=== PATIENT | male | born 1985 | race Caucasian/White ===

== ENCOUNTER 2023-12-05 04:58 | Inpatient (IN) | payer SELFPAY ==
[~2023-12-05] VITALS: Ht 170.2 cm; Wt 72.2 kg
[2023-12-05] MEDS: ACETAMINOPHEN 500 MG TABLET PO ONE (05:20)
[2023-12-05 05:40] LABS: SARS-CoV-2, RNA, NAAT NEGATIVE SARS CoV-2 (NEGATIVE)
[2023-12-05 05:44] LABS: INFLUENZA TYPE A Negative For Type A (NEGATIVE); INFLUENZA TYPE B Negative For Type B (NEGATIVE)
[2023-12-05 06:08] VITALS: TEMP 98.9
[2023-12-05 06:29] LABS: BASOPHILS # (AUTO) 0.02 K/uL (0.00-0.20); BASOPHILS % (AUTO) 0.1 % (0.0-5.0); EOSINOPHILS # (AUTO) 0.04 K/uL (0.00-0.70); EOSINOPHILS % (AUTO) 0.2 % (0.0-8.0); HEMATOCRIT 32.5 % (42-54); IMMATURE GRANULOCYTE ABSOLUTE 0.09 K/uL (0-1); LYMPHOCYTES # (AUTO) 1.4 K/uL (1.0-4.8); LYMPHOCYTES % (AUTO) 7.9 % (21.0-51.0); MEAN CORPUSCULAR HEMOGLOBIN 28.9 pg (27.0-33.0); MEAN CORPUSCULAR HGB CONC 33.8 g/dL (32.0-36.0); MEAN CORPUSCULAR VOLUME 85.5 fL (79-99); MONOCYTES # (AUTO) 1.3 K/uL (0.1-1.0); MONOCYTES % (AUTO) 7.1 % (3.0-13.0); NEUTROPHILS # (AUTO) 15.1 K/uL (1.8-7.7); NEUTROPHILS % (AUTO) 84.2 % (40.0-77.0); PLATELET COUNT (AUTO) 274 K/uL (130-400); RED CELL DISTRIBUTION WIDTH 12.9 % (11.0-15.5)
[2023-12-05 06:55] LABS: ACETAMINOPHEN 7 mcg/mL (10-29); ALANINE AMINOTRANSFERASE 30 U/L (12-78); ALBUMIN 3.4 g/dL (3.5-5.0); ASPARTATE AMINOTRANSFERASE 30 U/L (10-37); BILIRUBIN,TOTAL 0.9 mg/dL (0.2-1.0); CARBON DIOXIDE 26 mmol/L (21-32); CHLORIDE 100 mmol/L (101-111); CREATININE 1.1 mg/dL (0.5-1.3); GLOMERULAR FILTR. RATE CALC 88 mL/min (>90); GLUCOSE,RANDOM 110 mg/dL (70-105); POTASSIUM 3.2 mmol/L (3.5-5.1); SODIUM SERUM 135 mmol/L (136-145); TOTAL PROTEIN, SERUM 7.4 g/dL (6.0-8.3); UREA NITROGEN, BLOOD 18 mg/dL (7-18)
[2023-12-05 07:04] LABS: SALICYLATE < 2.8 mg/dL (2.8-20.0)
[2023-12-05 07:05] LABS: CREATINE KINASE, TOTAL 501 U/L (21-232)
[2023-12-05] MEDS: CEFTRIAXONE 2GM VIAL IVPB ONE (08:34)
[2023-12-05] MEDS: KCL 20 MEQ ERTAB PO ONE (08:35)
[2023-12-05] MEDS: LACTATED RINGERS 1000ML 1,000 ML IV ONE (08:46)
[2023-12-05] MEDS ORDERED: ACETAMINOPHEN WITH CODEINE 1 TAB TAB PO PRN ×2 (09:00)
[2023-12-05] MEDS ORDERED: MORPHINE 2 MG SYG IV PRN (09:00)
[2023-12-05] MEDS ORDERED: ONDANSETRON 4MG INJ IV PRN (09:00)
[2023-12-05] MEDS ORDERED: ACETAMINOPHEN 325 MG TAB PO PRN ×2 (09:00)
[2023-12-05] MEDS: ENOXAPARIN SODIUM 30 MG/0.3 ML SQ SCH (09:28)
[2023-12-05] MEDS: FAMOTIDINE 20MG VIAL IV SCH (09:28)
[2023-12-05] MEDS: 0.9%NACL 1000ML 1,000 ML IV SCH (09:29)
[2023-12-05] MEDS: KCL 20 MEQ ERTAB PO PRN (12:22)
[2023-12-05] MEDS ORDERED: POTASSIUM CHLORIDE 20MEQ/100ML 100 ML IV PRN (12:30)
[2023-12-05] MEDS ORDERED: POTASSIUM CHLORIDE 10% ELIXIR 20 MEQ/15 ML UDCUP PO PRN (12:30)
[2023-12-05] MEDS: ZOSYN 3.375GM+NS 50ML 50 ML IV SCH (13:35)
[2023-12-05 13:58] LABS: APPEARANCE,URINE CLOUDY (CLEAR); BILIRUBIN,URINE NEGATIVE (NEGATIVE); COLOR,URINE LIGHT-YELLOW (YELLOW); GLUCOSE, URINE (UA) NEGATIVE (NEGATIVE); KETONES,URINE 10 mg/dL (NEGATIVE); LEUKOCYTE ESTERASE ,URINE NEGATIVE Leu/uL (NEGATIVE); NITRATE,URINE NEGATIVE (NEGATIVE); OCCULT BLOOD,URINE NEGATIVE (NEGATIVE); PH,URINE 6.5 (5.0-8.0); PROTEIN,URINE 30 mg/dL (NEGATIVE); UROBILINOGEN,URINE 0.2 mg/dL (0.2-1.0)
[2023-12-05 14:00] LABS: ADD UA MICROSCOPIC YES
[2023-12-05 14:02] LABS: BACTERIA,URINE RARE /HPF (None Seen); MUCUS,URINE RARE LPF (None Seen)
[2023-12-05 14:06] LABS: AMPHET/METH SCREEN,URINE POSITIVE (NEGATIVE); BARBITURATE SCREEN, URINE NEGATIVE (NEGATIVE); BENZODIAZEPINES SCREEN,URINE NEGATIVE (NEGATIVE); CANNABINOID SCREEN,URINE NEGATIVE (NEGATIVE); COCAINE SCREEN,URINE POSITIVE (NEGATIVE); OPIATE SCREEN,URINE NEGATIVE (NEGATIVE); PHENCYCLIDINE SCREEN,URINE NEGATIVE (NEGATIVE)
[2023-12-05] MEDS ORDERED: LORAZEPAM 2 MG/ML 1 ML VIAL IVP PRN (14:30)
[2023-12-05] MEDS ORDERED: PHARMACY COMMUNICATION MISC PRN (14:30)
[2023-12-05 14:50] LABS: HEMOGLOBIN A1C 5.4 % (4.0-6.0)
[2023-12-05 19:32] VITALS: O2SAT 100
[2023-12-05 20:05] VITALS: BP 124/71; PULSE 95; RESP 18
[2023-12-06] VITALS: BP 115/71; PULSE 94; RESP 18
[2023-12-06 04:00] VITALS: BP 109/65; PULSE 80; PULSE 86; RESP 18
[2023-12-06 04:06] LABS: BASOPHILS # (AUTO) 0.01 K/uL (0.00-0.20); BASOPHILS % (AUTO) 0.1 % (0.0-5.0); EOSINOPHILS # (AUTO) 0.34 K/uL (0.00-0.70); EOSINOPHILS % (AUTO) 4.7 % (0.0-8.0); HEMATOCRIT 31.5 % (42-54); IMMATURE GRANULOCYTE ABSOLUTE 0.03 K/uL (0-1); LYMPHOCYTES # (AUTO) 2.1 K/uL (1.0-4.8); MEAN CORPUSCULAR HEMOGLOBIN 28.8 pg (27.0-33.0); MEAN CORPUSCULAR HGB CONC 32.4 g/dL (32.0-36.0); MONOCYTES # (AUTO) 0.4 K/uL (0.1-1.0); NEUTROPHILS # (AUTO) 4.4 K/uL (1.8-7.7); NEUTROPHILS % (AUTO) 59.8 % (40.0-77.0); PLATELET COUNT (AUTO) 235 K/uL (130-400); RED BLOOD CELL COUNT(AUTO) 3.54 MIL/uL (4.50-6.20); RED CELL DISTRIBUTION WIDTH 12.9 % (11.0-15.5); WHITE BLOOD COUNT (AUTO) 7.3 K/uL (4.8-10.8)
[2023-12-06 04:28] LABS: ALBUMIN 2.5 g/dL (3.5-5.0); BILIRUBIN,TOTAL 0.2 mg/dL (0.2-1.0); POTASSIUM 3.7 mmol/L (3.5-5.1); TOTAL PROTEIN, SERUM 5.9 g/dL (6.0-8.3)
[2023-12-06 05:15] LABS: ERYTHROCYTE SEDIMENTATION RATE 40 MM/HR (0-15)
[2023-12-06 08:04] VITALS: BP 143/68; PULSE 67; RESP 17
[2023-12-06] MEDS ORDERED: MAGNESIUM 2GM PREMIX 50ML 50 ML IV PRN (09:30)
[2023-12-06 11:26] VITALS: BP 123/79; PULSE 80; RESP 16
[2023-12-06] MEDS ORDERED: NICOTINE 21 MG/ 24 HR PATCH TD SCH (13:00)
== END 2023-12-06 16:29 | disposition left against medical advice (07) | DRG 603 ==
LOC: EDH 04:58 → EDHIP 04:59 → UNDOADMIN 09:00 → 4BH 20:07 → EDHIP 20:07
PROVIDERS: ADMIT Internal Medicine; ATTEND Internal Medicine
DX: L02.612 Cutaneous abscess of left foot (principal); M62.82 Rhabdomyolysis; L03.116 Cellulitis of left lower limb; E87.1 Hypo-osmolality and hyponatremia; R65.10 Systemic inflammatory response syndrome (SIRS) of non-infectious origin without acute organ dysfunction; Z59.00 Homelessness unspecified; E87.6 Hypokalemia; F14.10 Cocaine abuse, uncomplicated; F15.90 Other stimulant use, unspecified, uncomplicated; F17.200 Nicotine dependence, unspecified, uncomplicated; F32.A Depression, unspecified; I48.91 Unspecified atrial fibrillation; Z53.29 Procedure and treatment not carried out because of patient's decision for other reasons; G47.00 Insomnia, unspecified; K59.00 Constipation, unspecified; Z79.899 Other long term (current) drug therapy
CPT/HCPCS: 36415; 71045; 73630; 80053; 80305; 81001; 82550; 82948; 83036; 83605; 83735; 84145; 85025; 85651; 87070; 87076; 87086; 87186; 87635; 87804; 93005; G0378; G0481; J0696; J1650; J2543; J3490